=== PATIENT | female | born 1945 | race Caucasian/White ===

== ENCOUNTER → 2021-03-27 13:20 | Outpatient (CLI) | payer MEDICARE, OTHER, SELFPAY ==
[2021-03-27 13:48] LABS: Chloride 106 mmol/L (98-107)
[2021-03-27 13:49] LABS: Potassium 4.5 mmoL/L (3.5-5.1); Sodium 140 mmol/L (136-145)
[2021-03-27 13:51] LABS: Alanine Aminotransferase 47 U/L (12-78); Anion Gap 12.5 mEq/L (5-15); Aspartate Amino Transferase 39 U/L (14-36); Blood Urea Nitrogen 12 mg/dl (7-17); Carbon Dioxide 26 mmol/L (22.0-30.0); Estimated Glomerular Filt Rate 121 ml/min (>60); GFR (African American) 146 ML/MIN (>60)
[2021-03-27 13:52] LABS: Albumin Level 4.1 g/dl (3.5-5.0); Albumin/Globulin Ratio 1.8 (1.1-1.8); Alkaline Phosphatase 126 U/L (38-126); Bilirubin,Total 0.2 mg/dl (0.2-1.3); Calcium 9.5 mg/dl (8.4-10.2); Chol/HDL Ratio 3.7 (1-3.5); Cholesterol 223 mg/dl (140-200); Globulin 2.3 g/dL (1.3-3.2); Glucose 99 mg/dl (74-100); HDL Cholesterol 61 mg/dl (40-60); Total Protein,Serum 6.4 g/dl (6.3-8.2); Triglycerides 123 mg/dl (30-150); VLDL Cholesterol 25 mg/dL (0-40)
[2021-03-27 13:57] LABS: Basophils % 0.6 % (0.1-2.0); Eosinophils # 0.1 K/mm3 (0.0-0.4); Eosinophils % 1.2 % (0.1-12.0); Hematocrit 43.3 % (37.0-47.0); Hemoglobin 14.4 g/dL (12.2-16.2); Lymphocytes # 1.5 K/mm3 (0.7-4.5); Mean Corpuscular HGB Conc 33.2 g/dL (31.8-35.4); Mean Corpuscular Hemoglobin 31.7 pg (27.0-31.2); Mean Corpuscular Volume 95.4 fl (81-99); Mean Platelet Volume 8.7 fl (7.4-10.4); Monocytes # 0.3 K/mm3 (0.1-1.0); Monocytes % 5.4 % (1.7-9.3); Neutrophils % 66.8 % (37.0-80.0); Platelet Count 314 K/mm3 (142-424); Red Blood Count 4.54 M/mm3 (4.20-5.40); Red Cell Distribution Width 13.7 % (11.5-17.5)
[2021-03-27 14:04] LABS: Direct LDL Cholesterol 130.54 mg/dL (100-129)
== END ==
PROVIDERS: Visit Provider Family Medicine
DX: Z76.89 Persons encountering health services in other specified circumstances (principal); I10 Essential (primary) hypertension
CPT/HCPCS: 80053; 80061; 85025

== ENCOUNTER → 2021-04-07 10:38 | Outpatient (CLI) | payer MEDICARE, OTHER, SELFPAY ==
--- NOTE | 2021-04-07 10:38 | CT_ITS ---
PROCEDURE: CT ABDOMEN PELVIS WO CON CLINICAL INDICATION: recurrent right flank pain COMPARISON: No exams were available for comparison TECHNIQUE: Axial images obtained with sagittal and coronal reformats. All CT scans at the facility use one or more dose reduction, viz: automated exposure control, ma/kV adjustment per patient size (including targeted exams where dose is matched to indication, i.e. head), or iterative reconstruction technique. FINDINGS: LOWER THORAX: 5 mm subpleural nodule left lower lobe laterally nonspecific. 3 mm fissural nodule along the left major fissure inferiorly. ABDOMEN & PELVIS: There is a large cyst in the hepatic dome 7.4 by 7.2 by 7.8 cm this is subcapsular in location causing protrusion superiorly along the superior aspect of the liver in segment 8. The internal contents are of water attenuation. An additional small hypodense lesion is present in the right hepatic lobe posteriorly segment 6 measuring approximately 9 mm. Small hypodense lesion is present in the patent dome in the left hepatic lobe segment 4A measuring 5 mm. The spleen, adrenal glands, pancreas, and kidneys have an unremarkable appearance. No renal or ureteral calculi. No hydronephrosis. In the posterior aspect of the fundus of the stomach there is an asymmetric bulging area of soft tissue projecting posteriorly measuring approximately 3 cm with some minimal calcification along the peripheral margin. Upper endoscopy suggested for further evaluation. Alternatively, CT with IV and oral contrast may also provide further evaluation. No intestinal obstruction or free air. Prior appendectomy. Scattered colonic diverticula. No evidence of diverticulitis. Coarse calcification in the right adnexa. Mild amount of retained colonic feces. There are degenerative changes in the lumbar spine and lower thoracic spine. IMPRESSION: 3 cm asymmetric rounded bulge along the posterior aspect of the fundus of the stomach with some peripheral calcification suspicious for a gastric mass. Repeat exam with IV and oral contrast may confirm. Upper endoscopy may also provide further evaluation. It is possible this could be related to unusual incomplete distension. Differential diagnosis would include neoplastic process such as a GIST tumor, gastric leiomyoma, or adenocarcinoma. Follow-up is strongly suggested. Large right hepatic cyst and other smaller cyst as described above. The large cyst in the dome of the liver is causing contour deformity with bulging of the liver superiorly along the hemidiaphragm Dictated by: Meir Cortez MD 04/09/2021 07:42 Meir Cortez MD in [place] 04/09/2021 07:42
== END ==
PROVIDERS: PCP Family Medicine; Visit Provider Family Medicine
DX: R10.9 Unspecified abdominal pain (principal)
CPT/HCPCS: 74176

== ENCOUNTER → 2021-04-15 08:01 | Outpatient (CLI) | payer MEDICARE, OTHER, SELFPAY | PROVIDERS: Visit Provider Surgery | DX: Z01.812 Encounter for preprocedural laboratory examination (principal); Z20.822 Contact with and (suspected) exposure to COVID-19; Z13.810 Encounter for screening for upper gastrointestinal disorder; R10.9 Unspecified abdominal pain | CPT/HCPCS: C9803; U0003; U0005 ==

== ENCOUNTER 2021-04-17 07:21 | Day surgery (SDC) | payer MEDICARE, OTHER, SELFPAY ==
[2021-04-14 10:09] VITALS: BMI 29.5
[2021-04-17 07:45] VITALS: BP 130/87; PULSE 91; RESP 18; TEMP 37.1; O2SAT 97
--- NOTE | 2021-04-17 08:02 | HMH.ANESCL ---
[facility] Anesthesia Checklist - Patient Identification Patient Identification: Arm Band - Structural Data Admitted From: Home Planned Operative Procedure/s: EGD Consent for Planned Operative Procedure(s) Verified: Yes - NPO Status Verified Time NPO: 00:00 - Airway Assessment C-Spine Mobility Assessed: Yes TMJ Mobility Assessed: Yes Dentition: Good Dentition - Neurological Assessment Level of Consciousness: Awake Hx Seizures: No Numbness or tingling in extremities: No - Anesthesia Plan Anesthesia Risk discussed: Yes Anesthesia Plan: Verified ASA Class: II Anesthesia Type: MAC [facility] History I have reviewed the patient's past medical history: Yes Medical History: Reports:: Anxiety, Hypertension Denies:: Cancer, Diabetes Mellitus Type 1, Diabetes Mellitus Type 2, Internal Pacemaker, MRSA, Seizures *Have you ever received a pneumonia vaccine?: Yes *Have you received a flu vaccine this season?: No Anesthesia experience/problems:: None Other Surgeries: Yes: Appendectomy (December 2006). No: Pacemaker Amputation: No Fractures: Yes - *Social History Last grade of school completed: High school graduate Smoking Status: Never smoker Alcohol Intake: never Substance Use Type: denies use *Occupational Status:: retired Housing: house *Travel in the last 8 weeks: None - Psychiatric History Pschychiatric History:: Reports:: Anxiety Family Hx:: Cancer, Stroke
[2021-04-17 08:11] VITALS: O2SAT 97
--- NOTE | 2021-04-17 08:28 | HMH.SCOPE ---
- Procedure: Date: 04/17/21 Patient Date of :: 1945 Procedure Performed:: Esophagogastroduodenoscopy with biopsy Indications:: Abnormal CT scan abdomen (possible gastric mass) Performing Provider:: Kartik Arcos MD Referring Provider:: Dr. Jacques Sedation:: Monitored anesthesia care Procedure:: After informed consent was obtained the patient was taken to the endoscopy suite. Sedation ensued after the patient was transferred to the left lateral decubitus position. Pulse, blood pressure, and oxygen saturation were monitored throughout the procedure. The endoscope was advanced beyond the duodenal bulb. Retroflexion within the gastric lumen was accomplished. The gastroscope was carefully removed and the patient was transferred to recovery in stable condition. Please see findings and specimens below for detail. Findings:: Gastroesophageal junction 36 cm Patchy gastroduodenitis No definitive intraluminal mass Specimens:: Antral biopsy Mid gastric body biopsy Recommendations:: Follow-up pathology Evaluation with regard to possible gastric mass will be ongoing. No definitive intraluminal mass was noted on this study; however, additional studies such as UGI/SBFT and repeat CT scan with additional contrast may be warranted. In addition, gastric or perigastric mass that is not intraluminal remains a possibility. Complications:: No immediate Estimated blood obtained (mL): 1
[2021-04-17 08:30] VITALS: BP 101/63; PULSE 78; RESP 16; TEMP 36.3; O2SAT 94
[2021-04-17 08:40] VITALS: BP 124/64; PULSE 77; RESP 16; O2SAT 100
[2021-04-17 08:50] VITALS: BP 122/74; PULSE 72; RESP 16; O2SAT 100
[2021-04-17 09:00] VITALS: BP 128/76; PULSE 70; RESP 16; O2SAT 100
== END 2021-04-17 09:00 | disposition home or self-care (01) ==
LOC: OUTP 07:22
PROVIDERS: PCP Family Medicine; Visit Provider Surgery
PROC: 0DJ08ZZ Inspection of Upper Intestinal Tract, Via Natural or Artificial Opening Endoscopic (ICD-10-PCS; CPT 43235; principal; 2021-04-17 08:30)
DX: K29.90 Gastroduodenitis, unspecified, without bleeding (principal); I10 Essential (primary) hypertension; F41.9 Anxiety disorder, unspecified; Z90.49 Acquired absence of other specified parts of digestive tract; Z79.82 Long term (current) use of aspirin; Z79.899 Other long term (current) drug therapy; Z88.0 Allergy status to penicillin; Z80.9 Family history of malignant neoplasm, unspecified; Z82.3 Family history of stroke
CPT/HCPCS: 43239; 88305

== ENCOUNTER → 2021-05-26 08:36 | Outpatient (CLI) | payer MEDICARE, OTHER, SELFPAY ==
--- NOTE | 2021-05-26 08:36 | FL_ITS ---
FINAL REPORT CLINICAL HISTORY: Abnormal CT, RLQ PAIN H/O APPENDECTOMY 3:03 FLUORO TIME COMPARISON: CT report April 07, 2021 FINDINGS: An upper GI series was performed. A total of 3 minutes 3 seconds of fluoroscopy time was utilized. The esophagus has an unremarkable appearance. A small hiatal hernia is noted. No gastric mass is identified. The duodenum has unremarkable appearance. IMPRESSION: Small hiatal hernia. No gastric mass identified, but CT or MRI would be more sensitive. Authenticated by Dylan Mitchell III, MD on 05/26/2021 02:17:24 PM [facility]
== END ==
PROVIDERS: PCP Family Medicine; Visit Provider Surgery
DX: K31.89 Other diseases of stomach and duodenum (principal)
CPT/HCPCS: 74246; 74248